=== PATIENT | female | born 1980 | race Caucasian/White ===

== ENCOUNTER 2024-02-03 08:29 | Day surgery (SDC) | payer OTHER ==
[~2024-02-03] VITALS: Ht 157.5 cm; Wt 64.2 kg
[~2024-02-03 08:29] MED LIST: LR 1,000 ML IV SCH; Ondansetron 4 MG/2 ML VIAL IV PRN
[2024-02-03 08:44] VITALS: BP 97/61; PULSE 85; TEMP 97.1
[2024-02-03] MEDS ORDERED: ADDERALL XR30 MG PO (09:13)
[2024-02-03] MEDS ORDERED: AMBIEN 5MG TABLE5 MG PO (09:14)
[2024-02-03] MEDS ORDERED: RESTORIL30 MG PO (09:14)
[2024-02-03] MEDS ORDERED: ATIVAN 1MG T1 MG/TAB PO (09:15)
[2024-02-03] MEDS ORDERED: MINIPRESS 5M5 MG/CAP PO (09:15)
[2024-02-03] MEDS ORDERED: LATUDA80 MG PO (09:17)
[2024-02-03] MEDS ORDERED: CARAFATE 1GM1 G PO (09:18)
[2024-02-03] MEDS ORDERED: PROTONIX 40MG T40 MG PO (09:18)
[2024-02-03] MEDS ORDERED: MYDAYIS ER 25 M25 MG PO (09:19)
--- NOTE | 2024-02-03 09:21 | NUR ---
The patient ambulated back to [place] independenlty using a steady gait and appeared to tolerate the activity well. Vital signs obtained. Consent signed. 20G IV started in right wrist with one stick, LR Infusing without difficulty. Assessment completed. Home medications reconcilled. , Yuri, brought back to be at her bedside. Warm blankets provided. Denies any further needs at this time.
[2024-02-03] MEDS ORDERED: Lidocaine PF 2% (20 MG/ML) 5 ML VIAL ONE (09:42)
[2024-02-03 10:45] VITALS: BP 93/70; PULSE 80; TEMP 97.1
[2024-02-03 11:00] VITALS: BP 96/62; PULSE 80
--- NOTE | 2024-02-03 11:25 | NUR ---
1045 RETURNS TO ROOM 5 PER CART. AWAKE, ALERT. RESP UNLABORED. AMBULATES TO RECLINER WITH STANDBY ASSIST. DENIES NAUSEA, ABD/CHEST PAIN OR DYSPHAGIA. VITAL SIGNS OBTAINED. CALL LIGHT AT SIDE. IN ROOM 1100 TOLERATES PO SODA AND PUDDING WITHOUT NAUSEA. SWSALLOWS WITHOUT DIFFICULTY 1105 DISCHARGE INSTRUCTIONS REVIEWED. PATIENT VERBALIZES UNDERSTANDING. COPY PROVIDED IN DISCHARGE FOLDER 111 DR. FOX HERE TO VISIT WITH PATIENT
== END 2024-02-03 11:25 | disposition home or self-care (01) ==
LOC: SDCO 08:29
DX: K22.4 Dyskinesia of esophagus (principal); K44.9 Diaphragmatic hernia without obstruction or gangrene; K25.9 Gastric ulcer, unspecified as acute or chronic, without hemorrhage or perforation; D12.5 Benign neoplasm of sigmoid colon; K64.0 First degree hemorrhoids; K21.9 Gastro-esophageal reflux disease without esophagitis; F17.210 Nicotine dependence, cigarettes, uncomplicated
CPT/HCPCS: J2704; J7120